=== PATIENT | female | born 1995 | race American Indian/Alaskan Native ===

== ENCOUNTER 2017-06-16 20:28 | Emergency (ER) | payer MEDICAID ==
[2017-06-16 21:24] VITALS: BP 132/72
[2017-06-16] MEDS ORDERED: MOTRIN PO ONE (21:25)
--- NOTE | 2017-06-16 22:06 | XRay Report ---
FINAL REPORT EXAM: XR ELBOW 3+V RT HISTORY: elbow laceration and pain TECHNIQUE: 3 views right elbow PRIORS: None. FINDINGS: No fracture identified. No dislocation seen. No evidence of joint effusion. Joint spaces are within normal limits. No radiopaque foreign body identified. IMPRESSION: Negative elbow series
[2017-06-17] MEDS ORDERED: NORCO 7.5/325 PO ONE (00:01)
[2017-06-17] MEDS ORDERED: XYLOCAINE 1% 20 mL INFILTRATI ONE (00:02)
--- NOTE | 2017-06-17 01:05 | Emergency Department Report ---
- General Chief Complaint: Wound/Laceration Stated Complaint: PATIENT CUT ARM Time Seen by Provider: 06/17/17 00:00 Source: patient Mode of arrival: Ambulatory Limitations: No Limitations - History of Present Illness Initial Comments: 21-year-old female comes in reporting that she was playing and hit her right elbow on a sharp area of the bed and has cut her elbow. Patient has a past medical history of ADD and ADHD and is not treated. Since last Mr. Montes [id number]. She currently takes no medications has no known drug allergies. She does not know when her last tetanus was. -: This evening Extremity Location: Right: Elbow (2 lacerations one about 2 cm the other about 1 -1/2 cm) Place: home Patient Tetanus UTD: No Context: accidental Associated Symptoms: none, pain - Related Data Previous Rx's Medication Instructions Recorded Last Taken Type Vit-Fe Fumar-FA [ 1 tab PO QDAY #90 tablet 03/29/15 Unknown Rx Vitamin] Ferrous Sulfate [Feosol 325 MG tab] 325 mg PO BID #60 tablet 11/12/15 Unknown Rx Ibuprofen [Motrin 600 MG tab] 600 mg PO Q6H #30 tablet 11/12/15 Unknown Rx Vit Calc,Iron,Folic 1 each PO DAILY #30 tablet 11/12/15 Unknown Rx [ Vitamins] Docusate Sodium [Colace] 100 mg PO BID PRN #30 capsule 01/03/17 Unknown Rx Ferrous Sulfate [Feosol 325 MG tab] 325 mg PO BID #30 tablet 01/03/17 Unknown Rx Ibuprofen [Motrin] 600 mg PO Q8H PRN #30 tablet 01/03/17 Unknown Rx oxyCODONE /ACETAMINOPHEN [Percocet 1 tab PO Q6HR PRN #30 tablet 01/03/17 Unknown Rx 5/325] Acetaminophen/Codeine [Tylenol 1 tab PO Q6H PRN #12 tab 06/17/17 Unknown Rx /Codeine # 3 tab] Allergies Allergy/AdvReac Type Severity Reaction Status Date / Time No Known Allergies Allergy Verified 03/29/15 16:53 ED Review of Systems ROS: Stated complaint: PATIENT CUT ARM Other details as noted in HPI Constitutional: denies: chills, fever Eyes: denies: eye pain, eye discharge, vision change ENT: denies: ear pain, throat pain Respiratory: denies: cough, shortness of breath, wheezing Cardiovascular: denies: chest pain, palpitations Endocrine: no symptoms reported Gastrointestinal: denies: abdominal pain, nausea, diarrhea Genitourinary: denies: urgency, dysuria, discharge Musculoskeletal: denies: back pain, joint swelling, arthralgia Skin: other (aspiration to right elbow) Neurological: denies: headache, weakness, paresthesias Psychiatric: denies: anxiety, depression Hematological/Lymphatic: denies: easy bleeding, easy bruising ED Past Medical Hx - Past Medical History Previous Medical History?: Yes Hx Hypertension: No Hx Heart Attack/AMI: No Hx Congestive Heart Failure: No Hx Diabetes: No Hx Deep Vein Thrombosis: No Hx Renal Disease: No Hx Sickle Cell Disease: No Hx Seizures: No Hx Psychiatric Treatment: Yes (bipolar, adhd) Hx Asthma: No Hx COPD: No Hx HIV: No - Surgical History Past Surgical History?: No - Social History Smoking Status: Never Smoker - Medications Home Medications: Home Medications Medication Instructions Recorded Confirmed Last Taken Type Vit-Fe Fumar-FA [ 1 tab PO QDAY #90 tablet 03/29/15 01/03/17 Unknown Rx Vitamin] Ferrous Sulfate [Feosol 325 MG tab] 325 mg PO BID #60 tablet 11/12/15 01/03/17 Unknown Rx Ibuprofen [Motrin 600 MG tab] 600 mg PO Q6H #30 tablet 11/12/15 01/03/17 Unknown Rx Vit Calc,Iron,Folic 1 each PO DAILY #30 tablet 11/12/15 01/03/17 Unknown Rx [ Vitamins] Docusate Sodium [Colace] 100 mg PO BID PRN #30 capsule 01/03/17 Unknown Rx Ferrous Sulfate [Feosol 325 MG tab] 325 mg PO BID #30 tablet 01/03/17 Unknown Rx Ibuprofen [Motrin] 600 mg PO Q8H PRN #30 tablet 01/03/17 Unknown Rx oxyCODONE /ACETAMINOPHEN [Percocet 1 tab PO Q6HR PRN #30 tablet 01/03/17 Unknown Rx 5/325] Acetaminophen/Codeine [Tylenol 1 tab PO Q6H PRN #12 tab 06/17/17 Unknown Rx /Codeine # 3 tab] ED Physical Exam - General Limitations: No Limitations General appearance: alert, in no apparent distress - Head Head exam: Present: atraumatic, normocephalic - Eye Eye exam: Present: normal appearance - Expanded Upper Extremity Exam Right General: Present: laceration Elbow exam: Present: full ROM, tenderness, laceration (2 lacerations first one 1.5 cm second laceration 2 cm). Absent: deformity Forearm Wrist exam: Present: normal inspection Hand Wrist exam: Present: normal inspection Vascular: Present: normal capillary refill - Psychiatric Psychiatric exam: Present: normal affect, normal mood - Skin Skin exam: Present: warm, dry, intact, normal color. Absent: rash ED Course Vital Signs 06/16/17 21:18 Temperature 98.8 F Pulse Rate 20 L Blood Pressure 132/72 O2 Sat by Pulse 100 Oximetry - Laceration /Wound Repair Right Medial Arm Wound Location: upper extremity Irrigated w/ Saline (ccs): 2 Betadine Prep?: Yes Anesthesia: 1% Lidocaine Volume Anesthetic (ccs): 6 Wound Debrided: minimal Wound Repaired With: sutures Suture Size/Type: 5:0 Number of Sutures: 6 Layer Closure?: No Sterile Dressing Applied?: Yes Progress: Patient tolerated procedure well. ED Medical Decision Making - Radiology Data Radiology results: report reviewed Negative elbow series - Medical Decision Making Patient has been evaluated by this provider fast track. I discussed the patient that I'll give her something for pain I would need to suture her 2 lacerations on her right elbow and I would discharge her to return in 7-10 days to have sutures removed as well as give her pain medication. Patient verbalized understanding Critical care attestation.: If time is entered above; I have spent that time in minutes in the direct care of this critically ill patient, excluding procedure time. ED Disposition Clinical Impression: Laceration Disposition: DC-01 TO HOME OR SELFCARE Is pt being admited?: No Does the pt Need Aspirin: No Condition: Stable Instructions: Suture Care (ED), Laceration (ED) Additional Instructions: Take pain medication as prescribed. Do not operate heavy machinery while taking pain medication. Please return to the ER for suture removal 7-10 days. Return sooner if there is any swelling purulent discharge fever in the arm fever. Prescriptions: Acetaminophen/Codeine [Tylenol /Codeine # 3 tab] 1 tab PO Q6H PRN #12 tab PRN Reason: Pain Referrals: SHASTA CHAPMAN MD [Primary Care Provider] - 3-5 Days [facility] [Provider Group] - 3-5 Days Forms: Work/School Release Form(ED), Accompanied Note
== END 2017-06-17 01:20 | disposition home or self-care (01) ==
LOC: ED 20:28
DX: S51.011A Laceration without foreign body of right elbow, initial encounter (principal); F90.9 Attention-deficit hyperactivity disorder, unspecified type; F31.9 Bipolar disorder, unspecified; W26.8XXA Contact with other sharp object(s), not elsewhere classified, initial encounter; Y93.89 Activity, other specified; Y92.89 Other specified places as the place of occurrence of the external cause; Y99.8 Other external cause status
CPT/HCPCS: 99283